=== PATIENT | female | born 1950 ===

== ENCOUNTER 2020-10-05 11:57 | Emergency (ER) | payer OTHER ==
[~2020-10-05] VITALS: Ht 170.2 cm; Wt 81.8 kg
[2020-10-05 12:16] VITALS: BP 149/77; TEMP 97.7
[2020-10-05] MEDS ORDERED: MOTRIN 800800 MG/TAB PO (17:04)
[2020-10-05] MEDS ORDERED: FLEXERIL 1010 MG/TAB PO (17:04)
[2020-10-05] MEDS ORDERED: PERCOCET 325 MG1 TA2 PO (17:04)
[2020-10-05 17:32] VITALS: PULSE 78
== END 2020-10-05 17:32 | disposition home or self-care (01) ==
LOC: COL.ER 11:57
DX: M54.12 Radiculopathy, cervical region (principal); I10 Essential (primary) hypertension
CPT/HCPCS: J1885; J2270; J2360